=== PATIENT | female | born 1995 | race Caucasian/White ===

== ENCOUNTER 2019-04-19 20:41 | Emergency (ER) | payer OTHER ==
[2019-04-19 22:21] LABS: APPEARANCE,URINE CLEAR; BILIRUBIN,URINE NEGATIVE (NEGATIVE); COLOR,URINE YELLOW; GLUCOSE, URINE NEGATIVE (NEGATIVE); KETONES,URINE 80 mg/dL (NEGATIVE); LEUKOCYTE ESTERASE,URINE NEGATIVE (NEGATIVE); NITRITE,URINE NEGATIVE (NEGATIVE); PROTEIN,URINE NEGATIVE (NEGATIVE); UROBILINOGEN,URINE NEGATIVE mg/dL (<2.0)
[2019-04-20] MEDS ORDERED: RINGERS SOLUTION,LACTATED 1,000 ML IV ONE (02:58)
[2019-04-20] MEDS ORDERED: METOCLOPRAMIDE HCL INJ/PF 10 MG/2 ML SDV IV ONE (03:03)
--- NOTE | 2019-04-20 03:05 | ER Document Report ---
ED General - General Chief Complaint: Anxiety Stated Complaint: DIZZINESS,VOMITING,CHILLS Time Seen by Provider: 04/20/19 02:39 Notes: Patient is a 23-year-old female that comes to the emergency department for chief complaint of vomiting and anxiety. She states that she had a terrible phone call with her who is currently away at school in [place], patient is currently active duty here, she states that afterwards she could not stop crying, became extremely worked up and started vomiting. She states she was unable to eat anything until about 30 minutes ago when she ate some chips. She states that she had become so upset that she told her friend that she was thinking about killing herself, police came to the house and took weapons, then patient was referred to suicide hotline. Patient is active duty and she is supposed be meeting with the [facility] and then mental health tomorrow. Patient is not currently on any medications except for control, she denies history of suicidal attempts or psychiatric hospitalizations, she states that she no longer feels suicidal and just states that she was so overwhelmed at the time she did not know what today. She denies having a plan. She states she just feels exhausted now. Her friend is at bedside. TRAVEL OUTSIDE OF THE [place] IN LAST 30 DAYS: No - Related Data Allergies/Adverse Reactions: No Known Allergies Allergy (Unverified 04/19/19 21:57) Past Medical History - General Information source: Patient - Social History Smoking Status: Never Smoker Frequency of alcohol use: Occasional Drug Abuse: None Lives with: Friend Family History: Reviewed & Not Pertinent Patient has suicidal ideation: No Patient has homicidal ideation: No Past Surgical History: Reports: Hx Oral Surgery - Immunizations Immunizations up to date: Yes Hx Diphtheria, Pertussis, Tetanus Vaccination: Yes Review of Systems - Review of Systems Constitutional: No symptoms reported EENT: No symptoms reported Cardiovascular: No symptoms reported Respiratory: No symptoms reported Gastrointestinal: See HPI Genitourinary: No symptoms reported Female Genitourinary: No symptoms reported Musculoskeletal: No symptoms reported Skin: No symptoms reported Hematologic/Lymphatic: No symptoms reported Neurological/Psychological: See HPI Physical Exam - Vital signs Vitals: Temp Pulse Resp BP Pulse Ox 98.2 F 96 18 130/71 H 100 04/19/19 20:50 04/19/19 20:50 04/19/19 20:50 04/19/19 20:50 04/19/19 20:50 - Notes Notes: GENERAL: Alert, interacts well. No acute distress. HEAD: Normocephalic, atraumatic. EYES: Pupils equal, round, and reactive to light. Extraocular movements intact. ENT: Oral mucosa moist, tongue midline. Oropharynx unremarkable. Airway patent. LUNGS: Clear to auscultation bilaterally, no wheezes, rales, or rhonchi. No resp iratory distress. HEART: Regular rate and rhythm. No murmur ABDOMEN: Soft, non-tender. Non-distended. Bowel sounds present in all 4 quadrants. GENITOURINARY: Deferred EXTREMITIES: Moves all 4 extremities spontaneously. No edema, normal radial and dorsalis pedis pulses bilaterally. No cyanosis. BACK: no cervical, thoracic, lumbar midline tenderness. No saddle anesthesia, normal distal neurovascular exam. Moves all extremities in full range of motion. NEUROLOGICAL: Alert and oriented x3. Normal speech. Cranial nerves II through XII grossly intact. PSYCH: Normal affect, normal mood. Speaks calmly and has good eye contact. SKIN: Warm, dry, normal turgor. No rashes or lesions noted. Course - Re-evaluation Re-evalutation: Patient without complaints after IV fluids and Reglan. She has a normal neurological exam, soft abdomen, she is alert, cooperative, makes good eye contact. She states she was in distress, crying, and then started vomiting as a result. Appears to be stress response. She states she did say that she might kill herself, she has no plan, she denies suicidal ideations currently, she states that she was just overwhelmed at the time and she has no intention of even harming herself. She states she is staying with a friend, friend is at bedside, friend does state that they do not feel she is suicidal and they have no problem taking her home when she is ready. They state they will watch her. Patient already has plans for psychiatric follow-up and she states she is very comfortable going home. She is not going home alone. She has no psychiatric history reportedly. Patient is very calm and cooperative. Patient does not meet IVC criteria since she is not homicidal or suicidal. Patient will be discharged with her plan follow-up and return precautions which I did discuss. Patient and friend state appreciation and agreement. - Vital Signs Vital signs: Temp Pulse Resp BP Pulse Ox 98.3 F 67 18 120/78 100 04/20/19 05:07 04/20/19 05:07 04/20/19 05:07 04/20/19 05:07 04/20/19 05:07 - Laboratory Result Diagrams: 04/20/19 03:28 04/20/19 03:28 Laboratory results interpreted by me: 04/19/19 04/20/19 21:58 03:28 Chloride 108 H Urine Ketones 80 H Discharge - Discharge Clinical Impression: Stress response, Dehydration Vomiting Qualifiers: Vomiting type: unspecified Vomiting Intractability: non-intractable Nausea presence: unspecified Qualified Code(s): R11.10 - Vomiting, unspecified Condition: Stable Disposition: HOME, SELF-CARE Instructions: Anxiety (OM) Additional Instructions: You have been treated for dehydration. Please follow-up with your scheduled appointments for additional assistance and mental health evaluation/management. Come back for any concerning symptoms including vomiting, passing out, or something is not right.
[2019-04-20 03:49] LABS: ABSOLUTE LYMPHOCYTES (AUTO) 2.1 10^3/uL (0.5-4.7); ABSOLUTE MONOCYTES (AUTO) 0.6 10^3/uL (0.1-1.4); ABSOLUTE NEUT (AUTO) 4.7 10^3/uL (1.7-8.2); BASOPHILS % (AUTO) 0.6 % (0-2); EOSINOPHILS % (AUTO) 0.6 % (0-6); HEMATOCRIT 38.4 % (36.0-47.0); HEMOGLOBIN 13.2 g/dL (12.0-15.5); LYMPHOCYTES % (AUTO) 27.7 % (13-45); MEAN CORPUSCULAR HGB CONC 34.5 g/dL (32.0-36.0); MEAN CORPUSCULAR VOLUME 90 fl (80-97); MONOCYTES % (AUTO) 7.8 % (3-13); PLATELET COUNT 226 10^3/uL (150-450); RED BLOOD COUNT 4.27 10^6/uL (3.72-5.28); RED CELL DISTRIBUTION WIDTH 12.5 % (11.5-14.0); SEGMENTED NEUTROPHILS % (AUTO) 63.3 % (42-78); TOTAL CELLS COUNTED % (AUTO) 100 %; WHITE BLOOD COUNT 7.5 10^3/uL (4.0-10.5)
[2019-04-20 04:03] LABS: ALBUMIN 4.2 g/dL (3.5-5.0); ALKALINE PHOSPHATASE 54 U/L (38-126); ANION GAP 10 (5-19); ASPARTATE AMINO TRANSFERASE 22 U/L (14-36); BILIRUBIN,DIRECT 0.1 mg/dL (0.0-0.4); BILIRUBIN,TOTAL 0.5 mg/dL (0.2-1.3); BLOOD UREA NITROGEN 11 mg/dL (7-20); CALCIUM 9.3 mg/dL (8.4-10.2); CARBON DIOXIDE 24 mmol/L (22-30); CHLORIDE 108 mmol/L (98-107); GLUCOSE 94 mg/dL (75-110); POTASSIUM 4.4 mmol/L (3.6-5.0)
[2019-04-20 05:10] VITALS: BP 120/78
== END 2019-04-20 05:07 | disposition home or self-care (01) ==
LOC: ER 20:41
DX: F43.9 Reaction to severe stress, unspecified (principal); E86.0 Dehydration; R11.10 Vomiting, unspecified; F41.9 Anxiety disorder, unspecified; R42 Dizziness and giddiness
CPT/HCPCS: 36415; 80053; 81001; 81025; 83690; 85025; J2765; J7120